=== PATIENT | female | born 1950 | race Caucasian/White ===

== ENCOUNTER 2017-10-10 16:27 | Observation (INO) | payer MEDICARE, OTHER ==
--- NOTE | 2017-10-10 16:48 | EDM.PDOC ---
ED HPI GENERAL MEDICAL PROBLEM - General Chief Complaint: Abdominal Pain Stated Complaint: abdominal pain Time Seen by Provider: 10/10/17 16:47 Source of Information: Reports: Patient, Family () History Limitations: Reports: No Limitations - History of Present Illness INITIAL COMMENTS - FREE TEXT/NARRATIVE: She has had a colonoscopy before and that was about 2-1/2 years ago. Nothing acute was found. Dr. Fermin is her regular doctor. This admission she did have a ham and cheese sandwich and a banana and chocolate chip cookie she says that this is something she eats quite frequently. She also had a glass of milk. She has had regular bowel movements without any inconsistency. She has had flatus. Onset: Today, Sudden Middle Abdomen Pain Score (Numeric/FACES): 7 - Related Data Allergies Allergy/AdvReac Type Severity Reaction Status Date / Time nickel Allergy Itching Verified 10/10/17 16:40 Penicillins Allergy Rash Verified 10/10/17 16:40 bug bites Allergy Hives Uncoded 05/18/15 10:51 Home Meds: Home Meds ALPRAZolam [Xanax] 1 tab PO Q12H PRN 05/10/15 [History] Betamethasone Dipropionate [Diprosone 0.05% Crm] 1 dose TOP BID PRN 05/10/15 [ History] Krill Oil 1 tab PO BID 05/10/15 [History] Levothyroxine 1 tab PO DAILY 05/10/15 [History] Naproxen Sodium [Aleve] 220 - 440 mg PO BID PRN 05/10/15 [History] PARoxetine [Paxil] 20 mg PO DAILY 05/10/15 [History] cephALEXin [Cephalexin] 4 tab PO ASDIRECTED PRN 05/10/15 [History] Meloxicam 15 mg PO DAILY 10/10/17 [History] Non-Formulary Medication [NF Drug] 600 mg PO DAILY 10/10/17 [History] Simvastatin 10 mg PO BEDTIME 10/10/17 [History] Past Medical History HEENT History: Reports: Hard of Hearing Other HEENT History: DYSPHONIA Cardiovascular History: Reports: High Cholesterol Other Cardiovascular History: MVP Gastrointestinal History: Reports: Colon Polyp, GERD Musculoskeletal History: Psychiatric History: Reports: Anxiety, Depression Endocrine/Metabolic History: Reports: Hypothyroidism - Past Surgical History Dermatological Surgical History: Reports: Other (See Below) (Carpal tunnel surgery.) Social & Family History - Tobacco Use Smoking Status *Q: Current Status Unknown ED ROS GENERAL - Review of Systems Review Of Systems: ROS reveals no pertinent complaints other than HPI. ED EXAM, GI/ABD - Physical Exam Exam: See Below Exam Limited By: Uncooperative General Appearance: Moderate Distress, Severe Distress Respiratory/Chest: No Respiratory Distress, Lungs Clear Cardiovascular: Normal Peripheral Pulses, Regular Rate, Rhythm GI/Abdominal Exam: Other (Patient does have some epigastric No pain about the suprapubic area. Bowel sounds are hypoactive.) Course - Vital Signs Text/Narrative:: i did talk to the radiologist and Dr. Fermin- She agreed to keep the patient in for observation. I'm optimistic that the patient will be abke to rexolve her SBO without surgery. We will hydrate her and nothing by mouth. Last Recorded V/S: Last Vital Signs Temp 37.2 C 10/12/17 09:37 Pulse 88 10/12/17 09:37 Resp 16 10/12/17 09:37 BP 141/75 H 10/12/17 09:37 Pulse Ox 92 L 10/12/17 09:37 I did talk to the radiologist at about 1600 and he told me about the small bowel obstruction. I then talked to Dr. Fermin about 1606 and she agreed with the observation status. We will keep her hydrated and nothing by mouth and give her some Dilaudid for the pain and also will do a flat and upright film for a baseline of the air/fluid levels and we'll reassess her tomorrow. - Orders/Labs/Meds Labs: Laboratory Tests 10/10/17 10/10/17 Range/Units 17:20 17:20 WBC 9.9 (4.0-10.0) x10^3/uL RBC 4.52 (4.00-5.50) x10^6/uL Hgb 14.7 (12.0-16.0) g/dL Hct 42.3 (33.0-47.0) % MCV 93.6 H (78.0-93.0) fL MCH 32.5 H (26.0-32.0) pg MCHC 34.8 (32.0-36.0) g/dL RDW Coeff of Nikunj 12.7 (10.0-15.0) % Plt Count 298 (130-400) x10^3/uL Neut % (Auto) 85.1 H (50.0-80.0) % Lymph % (Auto) 8.8 L (25.0-50.0) % [place]vert % (Auto) 4.9 (2.0-11.0) % Eos % (Auto) 0.8 (0.0-4.0) % Baso % (Auto) 0.4 (0.2-1.2) % Sodium 137 (136-145) mmol/L Potassium 4.5 (3.5-5.1) mmol/L Chloride 103 (98-107) mmol/L Carbon Dioxide 29 (21-32) mmol/L Anion Gap 9.5 L (10-20) mmol/L BUN 15 (7-18) mg/dL Creatinine 0.9 (0.55-1.02) mg/dL Est Cr Clr Drug Dosing TNP Estimated GFR (MDRD) > 60 Glucose 124 H (74-106) mg/dL Calcium 10.1 (8.5-10.1) mg/dL Corrected Calcium 10.10 (8.5-10.1) mg/dL Magnesium 1.9 (1.8-2.4) mg/dL Total Bilirubin 0.3 (0.2-1.0) mg/dL AST 16 (15-37) U/L ALT 30 (14-59) U/L Alkaline Phosphatase 68 (46-116) U/L C-Reactive Protein < 0.2 (<=0.9) mg/dL Total Protein 7.8 (6.4-8.2) g/dL Albumin 4.0 (3.4-5.0) g/dL Globulin 3.8 Albumin/Globulin Ratio 1.05 Meds: Medications Discontinued Medications Generic Name Dose Route Start Last Admin Trade Name Freq PRN Reason Stop Dose Admin Al Hydroxide/Mg Hydroxide 30 ml 10/10/17 16:56 10/10/17 17:00 Gi Cocktail PO 10/10/17 16:57 30 ml ONETIME ONE Administration Hydromorphone HCl 0.5 mg 10/10/17 18:11 10/10/17 18:26 Dilaudid IVPUSH 10/10/17 18:12 0.5 mg ONETIME ONE Administration Hydromorphone HCl 0.5 - 1 mg 10/10/17 22:21 10/12/17 12:46 Dilaudid IVPUSH 1 mg Q4H PRN Administration Pain Sodium Chloride 1,000 mls @ 999 mls/hr 10/10/17 18:11 10/10/17 18:26 Normal Saline IV 10/10/17 19:11 999 mls/hr .BOLUS ONE Administration Sodium Chloride 1,000 mls @ 75 mls/hr 10/10/17 22:23 10/10/17 22:32 Normal Saline IV 10/11/17 11:42 75 mls/hr CONTINUOUS ONE Administration Sodium Chloride 1,000 mls @ 75 mls/hr 10/11/17 11:45 10/12/17 01:13 Normal Saline IV 75 mls/hr ASDIRECTED BUTCH Administration Metoclopramide HCl 10 mg 10/10/17 22:30 10/11/17 15:32 Reglan IVPUSH 10/11/17 14:31 10 mg Q8H BUTCH Administration Ondansetron HCl 4 mg 10/10/17 18:30 10/10/17 18:35 Zofran IVPUSH 10/10/17 18:31 4 mg ONETIME ONE Administration Ondansetron HCl 4 mg 10/11/17 06:52 10/11/17 23:45 Zofran Odt PO 4 mg Q8H PRN Administration Nausea/Vomiting Departure - Departure Time of Disposition: 16:06 Disposition: Refer to Observation Condition: Fair Clinical Impression: Small bowel obstruction - Discharge Information
[2017-10-10] MEDS ORDERED: GI Cocktail Oral Solution 30 ML PO ONE (16:56)
[2017-10-10 17:41] LABS: CHLORIDE,CL 103 mmol/L (98-107); SODIUM,NA 137 mmol/L (136-145)
[2017-10-10 17:44] LABS: ANION GAP 9.5 mmol/L (10-20)
[2017-10-10] MEDS ORDERED: HYDROmorphone 1 MG/ML Syringe IVPUSH ONE (18:11)
[2017-10-10] MEDS ORDERED: Sodium Chloride 0.9% 1,000 ML IV ONE ×2 (18:11→22:23)
[2017-10-10] MEDS ORDERED: Ondansetron 4 MG/2 ML SDV IVPUSH ONE (18:30)
[2017-10-10] MEDS: Metoclopramide 10 MG/2 ML SDV IVPUSH SCH (22:55)
[2017-10-10] MEDS: HYDROmorphone 1 MG/ML Syringe IVPUSH PRN (22:55)
[2017-10-11] MEDS: HYDROmorphone 1 MG/ML Syringe IVPUSH PRN ×6 (02:46→23:44)
[2017-10-11] MEDS: Metoclopramide 10 MG/2 ML SDV IVPUSH SCH ×2 (06:15→15:32)
[2017-10-11] MEDS: Ondansetron 4 MG Tab.DIS PO PRN ×2 (06:56→23:45)
--- NOTE | 2017-10-11 08:24 | PCM.PN ---
- General Info Date of Service: 10/11/17 Admission Dx/Problem (Free Text): Small bowel obstruction Nausea Abdominal Pain Subjective Update: Patient continues to have some moderate abdominal discomfort. She is not passing gas. She has not had a BM since admission. She continue to be NPO. She states her abdomen feels sore. Otherwise, no new complaints. Functional Status: Reports: Pain Controlled, Urinating Pain Score: 4 - Review of Systems General: Denies: Fever, Weakness, Chills Pulmonary: Denies: Shortness of Breath, Cough Cardiovascular: Denies: Chest Pain, Palpitations Gastrointestinal: Reports: Abdominal Pain, Decreased Appetite, Nausea. Denies: Vomiting Skin: Reports: No Symptoms Neurological: Reports: No Symptoms - Patient Data Vitals - Most Recent: Last Vital Signs Temp 37.4 C 10/11/17 06:00 Pulse 89 10/11/17 06:00 Resp 16 10/11/17 06:00 BP 114/55 L 10/11/17 06:00 Pulse Ox 88 L 10/11/17 07:26 Weight - Most Recent: 71.214 kg I&O - Last 24 Hours: Intake & Output 10/10/17 10/11/17 10/11/17 22:59 06:59 14:59 Intake Total 1465 Output Total 400 Balance 1065 Lab Results Last 24 Hours: Laboratory Results - last 24 hr 10/10/17 10/10/17 Range/Units 17:20 17:20 WBC 9.9 (4.0-10.0) x10^3/uL RBC 4.52 (4.00-5.50) x10^6/uL Hgb 14.7 (12.0-16.0) g/dL Hct 42.3 (33.0-47.0) % MCV 93.6 H (78.0-93.0) fL MCH 32.5 H (26.0-32.0) pg MCHC 34.8 (32.0-36.0) g/dL RDW Coeff of Nikunj 12.7 (10.0-15.0) % Plt Count 298 (130-400) x10^3/uL Neut % (Auto) 85.1 H (50.0-80.0) % Lymph % (Auto) 8.8 L (25.0-50.0) % [place] % (Auto) 4.9 (2.0-11.0) % Eos % (Auto) 0.8 (0.0-4.0) % Baso % (Auto) 0.4 (0.2-1.2) % Sodium 137 (136-145) mmol/L Potassium 4.5 (3.5-5.1) mmol/L Chloride 103 (98-107) mmol/L Carbon Dioxide 29 (21-32) mmol/L Anion Gap 9.5 L (10-20) mmol/L BUN 15 (7-18) mg/dL Creatinine 0.9 (0.55-1.02) mg/dL Est Cr Clr Drug Dosing TNP Estimated GFR (MDRD) > 60 Glucose 124 H (74-106) mg/dL Calcium 10.1 (8.5-10.1) mg/dL Corrected Calcium 10.10 (8.5-10.1) mg/dL Magnesium 1.9 (1.8-2.4) mg/dL Total Bilirubin 0.3 (0.2-1.0) mg/dL AST 16 (15-37) U/L ALT 30 (14-59) U/L Alkaline Phosphatase 68 (46-116) U/L C-Reactive Protein < 0.2 (<=0.9) mg/dL Total Protein 7.8 (6.4-8.2) g/dL Albumin 4.0 (3.4-5.0) g/dL Globulin 3.8 Albumin/Globulin Ratio 1.05 Med Orders - Current: Current Medications Hydromorphone HCl (Dilaudid) 0.5 - 1 mg IVPUSH Q4H PRN PRN Reason: Pain Last Admin: 10/11/17 06:46 Dose: 1 mg Sodium Chloride (Normal Saline) 1,000 mls @ 75 mls/hr IV CONTINUOUS ONE Stop: 10/11/17 11:42 Last Admin: 10/10/17 22:32 Dose: 75 mls/hr Metoclopramide HCl (Reglan) 10 mg IVPUSH Q8H BUTCH Stop: 10/11/17 14:31 Last Admin: 10/11/17 06:15 Dose: 10 mg Ondansetron HCl (Zofran Odt) 4 mg PO Q8H PRN PRN Reason: Nausea/Vomiting Last Admin: 10/11/17 06:56 Dose: 4 mg Discontinued Medications Al Hydroxide/Mg Hydroxide (Gi Cocktail) 30 ml PO ONETIME ONE Stop: 10/10/17 16:57 Last Admin: 10/10/17 17:00 Dose: 30 ml Hydromorphone HCl (Dilaudid) 0.5 mg IVPUSH ONETIME ONE Stop: 10/10/17 18:12 Last Admin: 10/10/17 18:26 Dose: 0.5 mg Sodium Chloride (Normal Saline) 1,000 mls @ 999 mls/hr IV .BOLUS ONE Stop: 10/10/17 19:11 Last Admin: 10/10/17 18:26 Dose: 999 mls/hr Ondansetron HCl (Zofran) 4 mg IVPUSH ONETIME ONE Stop: 10/10/17 18:31 Last Admin: 10/10/17 18:35 Dose: 4 mg - Exam General: Alert, Oriented, Cooperative, No Acute Distress Lungs: Clear to Auscultation, Normal Respiratory Effort Cardiovascular: Regular Rate, Regular Rhythm GI/Abdominal Exam: Normal Bowel Sounds, Soft, Tender (LUQ and RUQ) Peripheral Pulses: 2+: Radial (L), Radial (R) Skin: Warm, Dry, Intact Neurological: No New Focal Deficit - Problem List & Annotations (1) Small bowel obstruction SNOMED Code(s): 595836013 Code(s): K56.609 - UNSP INTESTNL OBST, UNSP TO PARTIAL VERSUS COMPLETE OBST Status: Acute Priority: High Current Visit: Yes Onset Date: ~ (2) Abdominal pain SNOMED Code(s): 97418346 Code(s): R10.9 - UNSPECIFIED ABDOMINAL PAIN Status: Acute Priority: High Current Visit: Yes Onset Date: ~10/10/17 Qualifiers: Abdominal location: upper abdomen, unspecified Qualified Code(s): R10.10 - Upper abdominal pain, unspecified (3) Nausea SNOMED Code(s): 439968042 Code(s): R11.0 - NAUSEA Status: Acute Priority: Medium Current Visit: Yes Onset Date: ~10/10/17 - Problem List Review Problem List Initiated/Reviewed/Updated: Yes - Assessment Assessment:: SBO Abdominal Pain Nausea - Plan Plan:: 67 yo female admitted to the observation unit yesterday for diagnosis of SBO, Abdominal Pain, and Nausea. Continue with IVF. Will advanced diet to clear liquids only. Strongly recommend ambulation. Continue current medications without changes. Will recheck labs and xray tomorrow to check progression of SBO. At this time, I do not anticipate a discharge home, tomorrow at the very earliest. Patient is a full code. Patient wishes to be transferred to a higher level care should the need arise.
[2017-10-11] MEDS: Sodium Chloride 0.9% 1,000 ML IV SCH (11:48)
[2017-10-12] MEDS: Sodium Chloride 0.9% 1,000 ML IV SCH (01:13)
[2017-10-12] MEDS: HYDROmorphone 1 MG/ML Syringe IVPUSH PRN ×3 (03:55→12:46)
[2017-10-12 08:07] LABS: CHLORIDE,CL 107 mmol/L (98-107); SODIUM,NA 139 mmol/L (136-145)
[2017-10-12 08:17] LABS: ANION GAP 10.1 mmol/L (10-20)
[2017-10-12 09:39] VITALS: BP 141/75
--- NOTE | 2017-10-12 12:02 | PCM.DCSUM1 ---
Discharge Summary - Hospital Course HPI Initial Comments: She has had a colonoscopy before and that was about 2-1/2 years ago. Nothing acute was found. Dr. Fermin is her regular doctor. This admission she did have a ham and cheese sandwich and a banana and chocolate chip cookie she says that this is something she eats quite frequently. She also had a glass of milk. She has had regular bowel movements without any inconsistency. She has had flatus. Patients abdominal pain is worsening. She has not eaten any food over the past couple days. Diagnosis: Stroke: No Modified Plumas Scale: No Symptoms at All Modified Plumas Scale Score: 0 - Discharge Data Discharge Date: 10/12/17 Discharge Disposition: DC/Tfer to Acute Hospital 02 Condition: Good - Discharge Diagnosis/Problem(s) (1) Small bowel obstruction SNOMED Code(s): 033143034 ICD Code: K56.609 - UNSP INTESTNL OBST, UNSP TO PARTIAL VERSUS COMPLETE OBST Status: Acute Priority: High Current Visit: Yes Onset Date: ~ (2) Abdominal pain SNOMED Code(s): 41943861 ICD Code: R10.9 - UNSPECIFIED ABDOMINAL PAIN Status: Acute Priority: High Current Visit: Yes Onset Date: ~10/10/17 Qualifiers: Abdominal location: upper abdomen, unspecified Qualified Code(s): R10.10 - Upper abdominal pain, unspecified (3) Nausea SNOMED Code(s): 621334575 ICD Code: R11.0 - NAUSEA Status: Acute Priority: Medium Current Visit: Yes Onset Date: ~10/10/17 - Patient Summary/Data Hospital Course: Patient admitted for SBO. Over the past couple of days, nausea has gotten worse as well as the abdominal pain. She has not taken anything PO. She is not passing gas. Abd xray shows worsening of SBO, pelvis fullness, and bladder distention. Case discussed with Dr. Danisha Osman whom did not change patient status to acute, but rather said to transfer this patient. - Patient Instructions Diet: NPO - Discharge Plan *PRESCRIPTION DRUG MONITORING PROGRAM REVIEWED*: Not Applicable *COPY OF PRESCRIPTION DRUG MONITORING REPORT IN PATIENT JEANNINE: Not Applicable Home Medications: Home Meds ALPRAZolam [Xanax] 1 tab PO Q12H PRN 05/10/15 [History] Betamethasone Dipropionate [Diprosone 0.05% Crm] 1 dose TOP BID PRN 05/10/15 [ History] Krill Oil 1 tab PO BID 05/10/15 [History] Levothyroxine 1 tab PO DAILY 05/10/15 [History] Naproxen Sodium [Aleve] 220 - 440 mg PO BID PRN 05/10/15 [History] PARoxetine [Paxil] 20 mg PO DAILY 05/10/15 [History] cephALEXin [Cephalexin] 4 tab PO ASDIRECTED PRN 05/10/15 [History] Meloxicam 15 mg PO DAILY 10/10/17 [History] Non-Formulary Medication [NF Drug] 600 mg PO DAILY 10/10/17 [History] Simvastatin 10 mg PO BEDTIME 10/10/17 [History] Forms: Interfacility Transfer EMTALA - Discharge Summary/Plan Comment DC Time >30 min.: Yes Discharge Summary/Plan Comment: Case discussed with Dr. Love. Patient accepted in transfer. Patient will be sent to [facility] via [facility]. POC discussed with patient and agrees with transfer. - General Info Date of Service: 10/12/17 Admission Dx/Problem (Free Text: Small bowel obstruction Nausea Abdominal Pain Functional Status: Reports: Ambulating, Urinating. Denies: Pain Controlled, Tolerating Diet Numeric/FACES Score: 8 - Review of Systems General: Denies: Fever, Weakness, Chills Pulmonary: Denies: Shortness of Breath, Cough Cardiovascular: Denies: Chest Pain Gastrointestinal: Reports: Abdominal Pain, Nausea. Denies: Flatus, Vomiting Skin: Reports: No Symptoms Neurological: Reports: No Symptoms - Patient Data Vitals - Most Recent: Last Vital Signs Temp 37.2 C 10/12/17 09:37 Pulse 88 10/12/17 09:37 Resp 16 10/12/17 09:37 BP 141/75 H 10/12/17 09:37 Pulse Ox 92 L 10/12/17 09:37 Weight - Most Recent: 71.214 kg I&O - Last 24 hours: Intake & Output 10/11/17 10/12/17 10/12/17 22:59 06:59 14:59 Intake Total 948 779 Output Total 300 400 Balance 648 379 Lab Results - Last 24 hrs: Laboratory Results - last 24 hr 10/12/17 10/12/17 Range/Units 07:40 07:40 WBC 11.1 H (4.0-10.0) x10^3/uL RBC 4.32 (4.00-5.50) x10^6/uL Hgb 14.1 (12.0-16.0) g/dL Hct 41.8 (33.0-47.0) % MCV 96.8 H D (78.0-93.0) fL MCH 32.6 H (26.0-32.0) pg MCHC 33.7 (32.0-36.0) g/dL RDW Coeff of Nikunj 13.0 (10.0-15.0) % Plt Count 294 (130-400) x10^3/uL Neut % (Auto) 78.4 (50.0-80.0) % Lymph % (Auto) 10.6 L (25.0-50.0) % [place] % (Auto) 10.4 (2.0-11.0) % Eos % (Auto) 0.3 (0.0-4.0) % Baso % (Auto) 0.3 (0.2-1.2) % Sodium 139 (136-145) mmol/L Potassium 4.1 (3.5-5.1) mmol/L Chloride 107 (98-107) mmol/L Carbon Dioxide 26 (21-32) mmol/L Anion Gap 10.1 (10-20) mmol/L BUN 15 (7-18) mg/dL Creatinine 0.8 (0.55-1.02) mg/dL Est Cr Clr Drug Dosing 54.71 mL/min Estimated GFR (MDRD) > 60 Glucose 124 H (74-106) mg/dL Calcium 8.9 (8.5-10.1) mg/dL Magnesium 1.8 (1.8-2.4) mg/dL Med Orders - Current: Current Medications Hydromorphone HCl (Dilaudid) 0.5 - 1 mg IVPUSH Q4H PRN PRN Reason: Pain Last Admin: 10/12/17 07:47 Dose: 1 mg Sodium Chloride (Normal Saline) 1,000 mls @ 75 mls/hr IV ASDIRECTED BUTCH Last Admin: 10/12/17 01:13 Dose: 75 mls/hr Ondansetron HCl (Zofran Odt) 4 mg PO Q8H PRN PRN Reason: Nausea/Vomiting Last Admin: 10/11/17 23:45 Dose: 4 mg Discontinued Medications Al Hydroxide/Mg Hydroxide (Gi Cocktail) 30 ml PO ONETIME ONE Stop: 10/10/17 16:57 Last Admin: 10/10/17 17:00 Dose: 30 ml Hydromorphone HCl (Dilaudid) 0.5 mg IVPUSH ONETIME ONE Stop: 10/10/17 18:12 Last Admin: 10/10/17 18:26 Dose: 0.5 mg Sodium Chloride (Normal Saline) 1,000 mls @ 999 mls/hr IV .BOLUS ONE Stop: 10/10/17 19:11 Last Admin: 10/10/17 18:26 Dose: 999 mls/hr Sodium Chloride (Normal Saline) 1,000 mls @ 75 mls/hr IV CONTINUOUS ONE Stop: 10/11/17 11:42 Last Admin: 10/10/17 22:32 Dose: 75 mls/hr Metoclopramide HCl (Reglan) 10 mg IVPUSH Q8H BUTCH Stop: 10/11/17 14:31 Last Admin: 10/11/17 15:32 Dose: 10 mg Ondansetron HCl (Zofran) 4 mg IVPUSH ONETIME ONE Stop: 10/10/17 18:31 Last Admin: 10/10/17 18:35 Dose: 4 mg - Exam Quality Assessment: Reports: Supplemental Oxygen General: Reports: Alert, Oriented, Cooperative, No Acute Distress Lungs: Reports: Clear to Auscultation, Normal Respiratory Effort Cardiovascular: Reports: Regular Rate, Regular Rhythm GI/Abdominal Exam: Rigid, Tender, Abnormal Bowel Sounds (Absent) Skin: Reports: Warm, Dry, Intact Neurological: Reports: No New Focal Deficit *Q Meaningful Use (DIS) - VTE *Q VTE Mechanical Contraindications *Q: At Risk for Falls
== END 2017-10-12 13:15 | disposition short-term general hospital (02) ==
LOC: VM.ED 16:27 → VM.MS 18:06
PROVIDERS: ADMIT Physician Assistant; ATTEND Physician Assistant
DX: K56.609 Unspecified intestinal obstruction, unspecified as to partial versus complete obstruction (principal); R11.0 Nausea; E78.00 Pure hypercholesterolemia, unspecified; K21.9 Gastro-esophageal reflux disease without esophagitis; E03.9 Hypothyroidism, unspecified; F41.9 Anxiety disorder, unspecified; F32.9 Major depressive disorder, single episode, unspecified; Z79.899 Other long term (current) drug therapy
CPT/HCPCS: 36415; 51702; 74019; 74176; 80048; 80053; 83605; 83735; 85025; 86140; 94760; 96361; 96374; 96375; 96376; 99285; A9270-GY; G0378; J1170; J2405; J2765; J7030